=== PATIENT | male | born 1945 | race Caucasian/White ===

== ENCOUNTER → 2017-04-29 | Outpatient (CLI) | payer MEDICARE, OTHER ==
[~2017-04-29] MED LIST: ASPIRIN 32325 MG/TAB PO; ASPIRIN E.C. 8181 MG PO; BRILINTA90 MG PO; LIPITOR 80MG80 MG PO; MAREPA1200 MG PO; NITROSTAT0.4 MG/TAB SL; PRILOSEC 20MG20 MG PO; RAMIPRIL10 MG PO; TOPROL XL 25MG25 MG PO; ZOCOR 20MG20 MG PO
== END ==
LOC: COL.PUL 11:07
DX: J44.9 Chronic obstructive pulmonary disease, unspecified (principal); Z87.891 Personal history of nicotine dependence

== ENCOUNTER → 2021-11-20 | Outpatient (CLI) | payer MEDICARE, OTHER | LOC: COL.RAD 07:40 | DX: G31.1 Senile degeneration of brain, not elsewhere classified (principal); F07.81 Postconcussional syndrome ==

== ENCOUNTER 2021-12-01 10:30 | Outpatient (RCR) | payer MEDICARE, OTHER | END 2021-12-03 | disposition home or self-care (01) | LOC: WSST | DX: R41.841 Cognitive communication deficit (principal); F07.81 Postconcussional syndrome; R53.1 Weakness ==